=== PATIENT | male | born 1965 | race Caucasian/White ===

== ENCOUNTER 2017-03-08 13:45 | Emergency (ER) | payer BC, MEDICARE ==
[2017-03-08] MEDS ORDERED: CLONIDINE HCL 0.2 MG TABLET PO ONE (16:22)
--- NOTE | 2017-03-08 16:26 | ER Document Report ---
ED General - General Mode of Arrival: Ambulatory Information source: Patient TRAVEL OUTSIDE OF THE [place] IN LAST 30 DAYS: No - HPI Patient complains to provider of: Numbness to the right arm and hypertension Onset: Other - 2 days ago Associated symptoms: Other - see notes above <FARNAZ ARREGUIN - Last Filed: 03/08/17 17:35> <ANAIS HAND - Last Filed: 03/08/17 20:57> - General Chief Complaint: High Blood Pressure Stated Complaint: BLOOD PRESSURE PROBLEMS Time Seen by Provider: 03/08/17 16:00 Notes: 51-year-old male with history of unmedicated hypertension, bipolar disorder, and anxiety presents to the ED complaining of right arm numbness from the mid arm and including all fingers that started yesterday. Patient states that he was seen at the urgent care for the numbness and was told to come to the ED after having an elevated blood pressure. According to [facility] records, patient was in the ED 2 years ago with a blood pressure of 188/110. Patient reports that he woke up with the numbness yesterday. Day before onset the patient was fishing all day. Patient denies any slurred speech or vision changes. Patient was on Lisinopril, but stopped taking it a few months ago. Patient was also taking [place], but reports he is not on it at this time. (FARNAZ ARREGUIN) - Related Data Allergies/Adverse Reactions: acetaminophen [From Percocet] Adverse Reaction (Verified 03/08/17 13:52) oxycodone HCl [From Percocet] Adverse Reaction (Verified 03/08/17 13:52) Past Medical History - General Information source: Patient - Social History Smoking Status: Current Some Day Smoker Chew tobacco use (# tins/day): No Frequency of alcohol use: None Drug Abuse: None Family History: Other - Kidney Stones. Patient has suicidal ideation: No Patient has homicidal ideation: No - Past Medical History Cardiac Medical History: Reports: Hx Hypertension Pulmonary Medical History: Reports: Hx COPD Renal/ Medical History: Reports: Hx Kidney Stones. Denies: Hx Peritoneal Dialysis Psychiatric Medical History: Reports: Hx Anxiety, Hx Bipolar Disorder, Hx Depression Past Surgical History: Reports: Hx Appendectomy <FARNAZ ARREGUIN - Last Filed: 03/08/17 17:35> Review of Systems - Review of Systems Constitutional: No symptoms reported EENT: No symptoms reported. denies: Blurred vision Cardiovascular: See HPI, Other - increased blood pressure Respiratory: No symptoms reported Gastrointestinal: No symptoms reported Genitourinary: No symptoms reported Male Genitourinary: No symptoms reported Musculoskeletal: No symptoms reported Skin: No symptoms reported Hematologic/Lymphatic: No symptoms reported Neurological/Psychological: See HPI, Numbness - mid right arm to all fingers. denies: Speech impairment -: Yes All other systems reviewed and negative <FARNAZ ARREGUIN - Last Filed: 03/08/17 17:35> Physical Exam - General General appearance: Alert In distress: None - HEENT Head: Normocephalic, Atraumatic Eyes: Normal Extraocular movements intact: Yes Pupils: PERRL Neck: Normal. No: Carotid bruit - Respiratory Respiratory status: No respiratory distress Breath sounds: Normal - Cardiovascular Rhythm: Regular Heart sounds: Normal auscultation Pulses: Normal: Radial Normal capillary refill: Yes - equal bilaterally - Abdominal Inspection: Normal - Back Back: Normal - Extremities General upper extremity: Normal ROM, Other - Patient is having trouble making a fist. Right hand appears slightly swollen compared to left. Limited supination of the RUE. Elbow is non-tender.. No: Normal inspection - see neuro exam below General lower extremity: Normal inspection, Normal ROM - Neurological Neuro grossly intact: Yes Cognition: Normal Orientation: AAOx4 [place] Coma Scale Eye Opening: Spontaneous Mayra Coma Scale Verbal: Oriented Sensory: Other - Numbness just below the right elbow to the hands including all 5 digits. - Psychological Associated symptoms: Normal affect, Normal mood - Skin Skin Temperature: Warm Skin Moisture: Dry Skin Color: Normal <FARNAZ ARREGUIN - Last Filed: 03/08/17 17:35> Course - Laboratory Result Diagrams: 03/08/17 16:45 03/08/17 16:45 <FARNAZ ARREGUIN - Last Filed: 03/08/17 17:35> - Laboratory Result Diagrams: 03/08/17 16:45 03/08/17 16:45 - Diagnostic Test Radiology reviewed: Image reviewed, Reports reviewed - Normal brain MRI - EKG Interpretation by Me EKG shows normal: Sinus rhythm, [place], Intervals, QRS Complexes, ST-T Waves Rate: Normal - 71 Rhythm: NSR, PVC's When compared to previous EKG there are: Previous EKG unavailable <ANAIS HAND - Last Filed: 03/08/17 20:57> - Re-evaluation Re-evalutation: 03/08/17 20:44 The patient and family were hesitant for him to go to MRI earlier because they wanted to leave. They eventually agreed to MRI. special equipment technician just came to tell me the patient refused to have it done once they got over there. He asked him about getting medication for the claustrophobia, but he still refuses to have the MRI done. I spoke with the patient at length about this, that we could not say if his symptoms were due to a stroke or not. I told him that a bigger concern is not a stroke that occurred but risk of additional stroke. He understands. I told him he needs to follow-up with a local medical doctor for further evaluation, as he could be sent to an open air MRI machine as an outpatient. He is agreeable to this approach. (ANAIS HAND) - Vital Signs Vital signs: Temp Pulse Resp BP Pulse Ox 98.0 F 77 20 114/76 99 03/08/17 13:52 03/08/17 13:52 03/08/17 13:52 03/08/17 18:43 03/08/17 13:52 - Laboratory Laboratory results interpreted by me: 03/08/17 03/08/17 16:45 16:45 RBC 5.65 H Sodium 145.2 H Chloride 109 H Discharge <FARNAZ ARREGUIN - Last Filed: 03/08/17 17:35> <ANAIS HAND - Last Filed: 03/08/17 20:57> - Discharge Clinical Impression: Paresthesia of right upper extremity Hypertension Qualifiers: Hypertension type: essential hypertension Qualified Code(s): I10 - Essential ( primary) hypertension Condition: Stable Disposition: AGAINST MEDICAL ADVICE Instructions: High Blood Pressure, Requiring Treatment ([facility]) Additional Instructions: There is no clear explanation for the numbness you are having in your arm and hand. An MRI exam of your brain would have helped determine if this may be due to a stroke. You have decided not to get the MRI done. You will be discharged with a prescription for lisinopril for your blood pressure, as it is very important to keep your blood pressure under control. You should follow-up with a local medical doctor to manage your blood pressure and further evaluate the numbness you are having in your right upper extremity. RETURN TO THE EMERGENCY ROOM IF ANY NEW OR WORSENING SYMPTOMS. Prescriptions: Lisinopril 20 mg PO DAILY #30 tablet Scribe Attestation: 03/08/17 20:49 I personally performed the services described in the documentation, reviewed and edited the documentation which was dictated to the scribe in my presence, and it accurately records my words and actions. (ANAIS HAND) Scribe Documentation - Scribe Written by De:: De Vides, 03/08/2017 [id number] acting as scribe for :: Jake <FARNAZ ARREGUIN - Last Filed: 03/08/17 17:35>
[2017-03-08 16:57] LABS: ABSOLUTE BASOPHILS # (AUTO) 0.1 10^3/uL (0.0-0.2); ABSOLUTE EOSINOPHILS # (AUTO) 0.1 10^3/uL (0.0-0.6); ABSOLUTE LYMPHOCYTES (AUTO) 1.5 10^3/uL (0.5-4.7); ABSOLUTE MONOCYTES (AUTO) 0.5 10^3/uL (0.1-1.4); ABSOLUTE NEUT (AUTO) 4.6 10^3/uL (1.7-8.2); BASOPHILS % (AUTO) 1.3 % (0-2); EOSINOPHILS % (AUTO) 1.9 % (0-6); HEMATOCRIT 50.6 % (37.9-51.0); HGB HCT DIFFERENCE 0.4; LYMPHOCYTES % (AUTO) 22.2 % (13-45); MEAN CORPUSCULAR HGB CONC 33.5 g/dL (32.0-36.0); MEAN CORPUSCULAR VOLUME 90 fl (80-97); RED BLOOD COUNT 5.65 10^6/uL (4.35-5.55); SEGMENTED NEUTROPHILS % (AUTO) 67.6 % (42-78); WHITE BLOOD COUNT 6.9 10^3/uL (4.0-10.5)
[2017-03-08 17:21] LABS: ALANINE AMINOTRANSFERASE 45 U/L (21-72); ALBUMIN 4.4 g/dL (3.5-5.0); ALKALINE PHOSPHATASE 87 U/L (38-126); ANION GAP 14 (5-19); ASPARTATE AMINO TRANSFERASE 45 U/L (17-59); BILIRUBIN,DIRECT 0.4 mg/dL (0.0-0.4); BLOOD UREA NITROGEN 16 mg/dL (7-20); CALCIUM 9.5 mg/dL (8.4-10.2); CARBON DIOXIDE 22 mmol/L (22-30); CHLORIDE 109 mmol/L (98-107); CREATINE KINASE 168 U/L (55-170); CREATININE RESULT 1.25 mg/dL (0.52-1.25); GLUCOSE 95 mg/dL (75-110); POTASSIUM 4.2 mmol/L (3.6-5.0); SODIUM 145.2 mmol/L (137-145); TOTAL PROTEIN 8.2 g/dL (6.3-8.2)
[2017-03-08 17:30] LABS: CREATINE KINASE MB 0.61 ng/mL (<4.55)
[2017-03-08 17:31] LABS: TROPONIN I < 0.012 ng/mL
--- NOTE | 2017-03-08 17:57 | EKG REPORT ---
SEVERITY:- OTHERWISE NORMAL ECG - SINUS RHYTHM VENTRICULAR PREMATURE COMPLEX : Confirmed by: Shannan Rodrigues MD 08-Mar-2017 17:55:35
--- NOTE | 2017-03-08 17:58 | RADIOLOGY REPORT (SQ) ---
EXAM DESCRIPTION: CT HEAD WITHOUT COMPLETED DATE/TIME: 03/08/2017 5:35 pm REASON FOR STUDY: RUE numb, untreated HTN COMPARISON: None. TECHNIQUE: Axial images acquired through the brain without intravenous contrast. Images reviewed wi th bone, brain and subdural windows. Images stored on PACS. All CT scanners at this facility use dose modulation, iterative reconstruction, and/or weight based d osing when appropriate to reduce radiation dose to as low as reasonably achievable (ALARA). [facility]: Dose Right [facility]: CareDose [facility]: Dose Right [facility]: Teradose 4D [facility]: [employer] RADIATION DOSE: 64.61 mGy. LIMITATIONS: None. FINDINGS: VENTRICLES: Normal size and contour. CEREBRUM: No masses. No hemorrhage. No midline shift. Normal jang/white matter differentiation. N o evidence for acute infarction. CEREBELLUM: No masses. No hemorrhage. No alteration of density. No evidence for acute infarction. EXTRAAXIAL SPACES: No fluid collections. No masses. ORBITS AND GLOBE: No intra- or extraconal masses. Normal contour of globe without masses. CALVARIUM: No fracture. PARANASAL SINUSES: No fluid or mucosal thickening. SOFT TISSUES: No mass or hematoma. OTHER: No other significant finding. IMPRESSION: NORMAL BRAIN CT WITHOUT CONTRAST. TECHNICAL DOCUMENTATION: JOB ID: [id number] Quality ID # [id number]: Final reports with documentation of one or more dose reduction techniques (e.g., Au tomated exposure control, adjustment of the mA and/or kV according to patient size, use of iterative reconstruction technique) 2010 [employer]- All Rights Reserved
[2017-03-08 22:07] VITALS: BP 134/74
== END 2017-03-08 21:25 | disposition left against medical advice (07) ==
LOC: ER 13:45
DX: I10 Essential (primary) hypertension (principal); F31.9 Bipolar disorder, unspecified; F41.9 Anxiety disorder, unspecified; R22.0 Localized swelling, mass and lump, head; F17.200 Nicotine dependence, unspecified, uncomplicated
CPT/HCPCS: 36415; 70450; 80053; 82550; 82553; 84484; 85025; 93005; 93010; 99284